=== PATIENT | male | born 1945 | race Caucasian/White ===

== ENCOUNTER → 2018-12-21 | Outpatient (CLI) | payer MEDICARE, OTHER ==
[~2018-12-21] MED LIST: REGADENOSON 0.4 MG/5 ML DISP.SYRIN. IV ONE
--- NOTE | 2018-12-21 12:04 | RAD ---
MR#: [id number] Date of Study: 12/21/2018 Ordering Physician: LEVAR MURILLO, Referring Physician: JAVIER LUNA Tech: RT Shayy (R) (N) APPROVED REPORT Test Type: Pharmacological Stress Nurse/Tech: Bc Leon RN Test Indications: CAD Cardiac History: 2 stents 12 years ago, HTN Medications: See Electronic Medical Record Medical History: See Electronic Medical Record Resting ECG: SR BBB Resting Heart Rate: 57 bpm Resting Blood Pressure: 170/91mmHg Pretest Chest Pain: None Nurse/Tech Notes Lungs CTA, S1S2 Consent: The procedure was explained to the patient in lay terms. Informed consent was witnessed. Anant eout was entered into [employer]. History and Stress Test performed by LANDEN Liriano, HECTOR (R) (N) Pharm. Details Pharmacologic stress testing was performed using 0.4mg per 5ml of regadenoson given intravenously ove r 7-10 seconds. Stress Symptoms No chest pain or symptoms. POST EXERCISE Reason for Termination: Infusion complete Max HR: 66 bpm Max Blood Pressure: 171/94mmHg Blood Pressure response to exercise: Normal blood pressure response during stress. Heart Rate response to exercise: normal response Chest Pain: No. Arrhythmia: No. ST Change: No. INTERPRETATION Stress EKG Conclusion: The resting EKG shows a sinus rhythm, an incomplete right bundle branch block and nonspecific ST-T segment changes. The stress EKG shows no significant changes from baseline. No EKG evidence of stressed induced ischemia. Imaging Protocol IMAGE PROTOCOL: Rest Tc-99m/stress Tc-99m 1 day Rest: Stress: Viability: Radiopharm.Tc99m WcnhstjeyPc08e Sestamibi Cnun71iCj 33mCi Duration 15min. 10min. Img Date 12/21/2018 12/21/2018 Inj-Img Avfv30iog. 60min. Rest Admin Site:IV - Left AntecubitalAdministrator:RT Shayy (R)(N) Stress Admin Site: IV - Left AntecubitalAdministrator: LANDEN Liriano, HECTOR (R)(N) STRESS DATA End Diast. Vol.126.0mlAv. Heart Rate60.0bpm End Syst. Vol.46.0mlCO Index BSA4.8L/min Myocardial Fwsw609.0gEject. Mhhtrdie12.0% Stress Rates Pk. Fill Rate1.43EDV/secLVtime Pk. Fill 200.51msec Pk. Empty Rate2.98ESV/secLVtime Pk. Gutqd773.06msec /3 Pk. Fill0.76EDV/sec Stress Scores Regional WT1.00Summed WT9.00 Regional WM0.00Summed WM0.00 LV Perfusion The stress scans showed no significant defects. The rest scans showed no significant defects. Nuclear imaging shows no reversible ischemia or infarct. Wall Motion Left ventricular systolic function is normal with an ejection fraction of 63%. LV Perf. Quant 17 Seg. SSS4.00 17 Seg. SRS9.00 17 Seg. SDS0.00 Stress Defect Extent (% LAD)0.00Rest Defect Extent (% LAD)0.00Rev. Defect Extent (% LAD)0.00 Stress Defect Extent (% LCX) 16.30Rest Defect Extent (% LCX)71.30Rev. Defect Extent (% LCX)0.00 Stress Defect Extent (% RCA)0.00Rest Defect Extent (% RCA)10.00Rev. Defect Extent (% RCA)0.00 Stress Defect Extent (% FAUSTO)2.80Rest Defect Extent (% FAUSTO)18.50Rev. Defect Extent (% FAUSTO)0.00 Conclusion 1. No EKG evidence of stress-induced ischemia. 2. Nuclear imaging shows no reversible ischemia or infarct. 3. Normal left ventricular systolic function with an ejection fraction of 63%. 4. Low risk Lexiscan nuclear stress test. Signed by : Efrem Carver MD Electronically Approved : 12/21/2018 12:04:06
== END | disposition home or self-care (01) ==
LOC: NM 08:44
PROVIDERS: ATTEND Internal Medicine Cardiovascular Disease
DX: I45.19 Other right bundle-branch block (principal); I25.10 Atherosclerotic heart disease of native coronary artery without angina pectoris; I10 Essential (primary) hypertension
CPT/HCPCS: 78452; 93017; A9500; J2785

== ENCOUNTER → 2020-09-18 | Outpatient (CLI) | payer MEDICARE ==
--- NOTE | 2020-09-19 12:07 | CARD ---
MR#: [id number] Date of Study: 09/18/2020 Ordering Physician: LEVAR MURILLO, Referring Physician: LEVAR MURILLO, Tech: Liliana Lord, [facility] APPROVED REPORT EXAM: Two-dimensional and M-mode echocardiogram with Doppler and color Doppler. Other Information Quality : AverageHR: 61bpm INDICATION Cardiac Disease: CAD RISK FACTORS Hypertension Hyperlipidemia 2D DIMENSIONS RVDd4.4 (2.9-3.5cm)Left Atrium(2D)4.4 (1.6-4.0cm) IVSd1.2 (0.7-1.1cm)Aortic Root(2D)3.6 (2.0-3.7cm) LVDd5.8 (3.9-5.9cm)LVOT Diameter2.1 (1.8-2.4cm) PWd1.3 (0.7-1.1cm)LVDs4.4 (2.5-4.0cm) FS (%) 24.6 %SV79.2 ml Aortic Valve AoV Peak Josué.149.3cm/sAoV VTI31.7cm AO Peak GR.8.9mmHgLVOT Peak Josué.103.4cm/s LVOT VTI 21.42cmAO Mean GR.5mmHg RICARDO (VMAX)1.85cb6HAJ (VTI)2.29cm2 AI P 1/2 Jcjw787vs Mitral Valve MV E Odtdkedu36.6cm/sMV DECEL XYUX457ym MV A Lzvlnlef18.5cm/sMV FOC636ku E/A Ratio0.8MVA (PHT)2.08cm2 TDI E/Lateral E'6.0E/Medial E'7.1 Pulmonary Valve PV Peak Nyylplyx66.8cm/sPV Peak Grad.4mmHg Tricuspid Valve TR P. Ymzswubj279yp/sRAP ZLKYRSOK1rcQx TR Peak Gr.03rcFqBBPR98ycSl Pulmonary Vein S1 Xvgjdduh03.5cm/sD2 Ydujqtzm47.1cm/s PVa aokkybty326bmoz LEFT VENTRICLE The left ventricle is normal size. There is mild concentric left ventricular hypertrophy. The left ve ntricular systolic function is normal and the ejection fraction is within normal range. The Ejection Fraction is 50-55%. There is normal LV segmental wall motion. Transmitral Doppler flow pattern is Gra de I-abnormal relaxation pattern. RIGHT VENTRICLE The right ventricle is mildly dilated. There is normal right ventricular wall thickness. The right ve ntricular systolic function is normal. ATRIA The left atrium is borderline dilated. The right atrium size is normal. The interatrial septum is int act with no evidence for an atrial septal defect or patent foramen ovale as noted on 2-D or Doppler i maging. AORTIC VALVE The aortic valve is normal in structure and function. Doppler and Color Flow revealed trace aortic re gurgitation. Calculated aortic valve maximum pressure gradient of 16 mmHg and mean pressure gradient of 7 mmHg. There is no significant aortic valvular stenosis. MITRAL VALVE The mitral valve is normal in structure and function. There is no evidence of mitral valve prolapse. There is no mitral valve stenosis. Doppler and Color-flow revealed trace mitral regurgitation. TRICUSPID VALVE The tricuspid valve is normal in structure and function. Doppler and Color Flow revealed trace tricus pid regurgitation with an estiamted PAP of 37 mmHg. There is no tricuspid valve stenosis. PULMONIC VALVE The pulmonic valve is not well visualized. Doppler and Color Flow revealed no pulmonic valvular regur gitation. GREAT VESSELS The aortic root is normal in size. The ascending aorta is mildly dilated measuring 3.9 cm. The IVC is normal in size and collapses >50% with inspiration. PERICARDIAL EFFUSION There is no evidence of significant pericardial effusion. Critical Notification Critical Value: No <Conclusion> The left ventricle is normal size. The left ventricular systolic function is normal and the ejection fraction is within normal range. The Ejection Fraction is 50-55%. There is mild concentric left ventricular hypertrophy. Doppler and Color Flow revealed trace aortic regurgitation. Calculated aortic valve maximum pressure gradient of 16 mmHg and mean pressure gradient of 7 mmHg. There is no significant aortic valvular stenosis. Doppler and Color-flow revealed trace mitral regurgitation. Doppler and Color Flow revealed trace tricuspid regurgitation with an estiamted PAP of 37 mmHg. The ascending aorta is mildly dilated measuring 3.9 cm. Signed by : Efrem Carver MD Electronically Approved : 09/19/2020 12:06:34
--- NOTE | 2020-09-19 12:52 | RAD ---
MR#: [id number] Date of Study: 09/18/2020 Ordering Physician: LEVAR MURILLO, Referring Physician: JAVIER LUNA: EKATERINA Cope APPROVED REPORT Test Type: Pharmacological Stress Nurse/Tech: Amanda Belle RN Test Indications: CAD Cardiac History: HTN, [place] in 2006 w/ 2 stents placed, See EMR. Medications: ASA 81mg, See EMR. Medical History: See EMR. Resting ECG: SR Resting Heart Rate: 52 bpm Resting Blood Pressure: 145/91mmHg Pretest Chest Pain: No chest pain Nurse/Tech Notes Lungs CTA, Heart tones regular. Pt took all medications this am, including betablocker. Consent: The procedure was explained to the patient in lay terms. Informed consent was witnessed. Anant eout was entered into [employer]. History and Stress Test performed by LANDEN Liriano, HECTOR (R) (N) Pharm. Details Pharmacologic stress testing was performed using 0.4mg per 5ml of regadenoson given intravenously ove r 7-10 seconds. Stress Symptoms No chest pain or symptoms. POST EXERCISE Reason for Termination: Infusion complete Max HR: 66 bpm Max Blood Pressure: 144/78mmHg Blood Pressure response to exercise: Normal blood pressure response during stress. Heart Rate response to exercise: WNL Chest Pain: No. Arrhythmia: No. ST Change: No. INTERPRETATION Stress EKG Conclusion: The resting EKG shows a sinus rhythm with mild nonspecific ST segment changes. The stress EKG shows no significant changes from baseline. No EKG evidence of stress-induced ischemia. Imaging Protocol IMAGE PROTOCOL: Rest Tc-99m/stress Tc-99m 1 day Rest: Stress: Viability: Radiopharm.Tc99m SrxwjtylhMg62t Sestamibi Dose10.2mCi 32mCi Duration 15min. 10min. Img Date 09/18/2020 09/18/2020 Inj-Img Jlhb92rki. 60min. Rest Admin Site:IV - Left AntecubitalAdministrator:EKATERINA Cope Stress Admin Site: IV - Left AntecubitalAdministrator: LANDEN Liriano, ARRT (R)(N) STRESS DATA End Diast. Vol.119.0mlAv. Heart Rate57.0bpm End Syst. Vol.36.0mlCO Index BSA0.0L/min Myocardial Ipjh963.0gEject. Rbbegrlg51.0% Stress Rates Pk. Fill Rate2.09EDV/secLVtime Pk. Fill 270.80msec Pk. Empty Rate3.33ESV/secLVtime Pk. Mhvqh772.01msec 03/02 Pk. Fill0.97EDV/sec Stress Scores Regional WT0.00Summed WT1.00 Regional WM0.00Summed WM0.00 LV Perfusion The stress scans showed no significant defects. The rest scans showed no significant defects. Nuclear imaging shows no reversible ischemia or infarct. Wall Motion Left ventricular systolic function is normal with no regional wall motion abnormalities and an ejecti on fraction of 68%. LV Perf. Quant 17 Seg. SSS3.00 17 Seg. SRS1.00 17 Seg. SDS3.00 Stress Defect Extent (% LAD)0.00Rest Defect Extent (% LAD)0.00Rev. Defect Extent (% LAD)0.00 Stress Defect Extent (% LCX) 0.00Rest Defect Extent (% LCX)6.30Rev. Defect Extent (% LCX)0.00 Stress Defect Extent (% RCA)0.00Rest Defect Extent (% RCA)0.00Rev. Defect Extent (% RCA)0.00 Stress Defect Extent (% FAUSTO)0.00Rest Defect Extent (% FAUSTO)1.50Rev. Defect Extent (% FAUSTO)0.00 Conclusion 1. No EKG evidence of stress-induced ischemia. 2. Nuclear imaging shows no reversible ischemia or infarct. 3. Normal left ventricular systolic function with an ejection fraction of 68%. 4. Low risk Lexiscan nuclear stress test. Signed by : Efrem Carver MD Electronically Approved : 09/19/2020 12:51:31
== END ==
LOC: NM 08:12
PROVIDERS: ATTEND Internal Medicine Cardiovascular Disease
DX: I51.7 Cardiomegaly (principal); I25.10 Atherosclerotic heart disease of native coronary artery without angina pectoris
CPT/HCPCS: 78452; 93017; 93306; A9500; J2785